=== PATIENT | male | born 1990 | race African-American/Black ===

== ENCOUNTER 2023-11-29 22:00 | Emergency (ER) | payer MEDICAID ==
[~2023-11-29] VITALS: Ht 177.8 cm; Wt 90.7 kg
[2023-11-29 22:05] VITALS: BP 125/62; PULSE 112; RESP 17; TEMP 98.1; O2SAT 98
[2023-11-29 22:46] LABS: BASOPHILS # (AUTO) 0.1 K/uL (0.00-0.22); BASOPHILS % (AUTO) 0.4 % (0.0-2.0); EOSINOPHILS # (AUTO) 0.1 K/uL (0-0.4); EOSINOPHILS % (AUTO) 0.5 % (0.0-4.0); HEMATOCRIT 37.9 % (36-52); LYMPHOCYTES # (AUTO) 2.5 K/uL (2.0-11.5); LYMPHOCYTES % (AUTO) 18.4 % (20.5-51.1); MEAN CORPUSCULAR HEMOGLOBIN 31 pg (27-31); MEAN CORPUSCULAR HGB CONC 34 g/dL (33-37); MEAN CORPUSCULAR VOLUME 90.6 fL (80-94); MONOCYTES # (AUTO) 0.9 K/uL (0.8-1.0); MONOCYTES % (AUTO) 6.9 % (1.7-9.3); NEUTROPHILS % (AUTO) 73.8 % (42.2-75.2); PLATELET COUNT (AUTO) 342 K/uL (140-450); RED BLOOD CELL COUNT(AUTO) 4.19 MIL/uL (4.20-6.10); RED CELL DISTRIBUTION WIDTH 12.4 % (11.6-13.7); WHITE BLOOD COUNT (AUTO) 13.6 K/uL (4.8-10.8)
[2023-11-29] MEDS: NACL 0.9% 1,000 ML IV ONE (22:48)
[2023-11-29] MEDS: LORazepam 2 MG/ML VIAL IVP ONE (22:48)
[2023-11-29 23:04] LABS: ALBUMIN 3.4 g/dL (3.4-5.0); BILIRUBIN,DIRECT 0.1 mg/dL (0.0-0.3); TOTAL BILIRUBIN 0.3 mg/dL (0.0-1.0); TOTAL PROTEIN, SERUM 6.7 g/dL (6.4-8.2)
[2023-11-29 23:06] LABS: ANION GAP 14.2 (8-16); CALCIUM 8.2 mg/dL (8.5-10.1); CREATININE 1.7 mg/dL (0.6-1.3); POTASSIUM 3.2 mmol/L (3.5-5.1)
[2023-11-29 23:22] LABS: APPEARANCE,URINE CLEAR (CLEAR); BILIRUBIN,URINE NEGATIVE (NEGATIVE); BLOOD, URINE TRACE-I (NEGATIVE); COLOR,URINE YELLOW (YELLOW); LEUKOCYTE ESTERASE ,URINE NEGATIVE (NEGATIVE); NITRITE, URINE NEGATIVE (NEGATIVE); PROTEIN,URINE NEGATIVE (NEGATIVE); UGLUCOSE NEGATIVE (NEGATIVE); UROBILINOGEN,URINE 0.2 EU/dL (0.2 - 1)
[2023-11-29 23:30] LABS: AMPHETAMINE, URINE NEGATIVE ng/ml (NEG <=1000); BARBITURATE, URINE NEGATIVE ng/ml (NEG <=200); BENZODIAZEPINE, URINE NEGATIVE ng/mL (NEG <=200); CANNABINOID, URINE NEGATIVE ng/mL (NEG <=50); COCAINE, URINE NEGATIVE ng/mL (NEG <=300); OPIATE, URINE NEGATIVE ng/mL (NEG <=2000); PHENCYCLIDINE SCREEN,URINE NEGATIVE ng/mL (NEG <=25)
[2023-11-29 23:43] LABS: RBC,URINE 0-5 /HPF (0-5)
[2023-11-29 23:44] LABS: BACTERIA,URINE FEW /HPF (None Seen); MUCUS,URINE None Seen /LPF (None Seen); SQUAMOUS EPITHELIAL CELL,UR 0-3 (FEW) /LPF (0-3 (FEW)); WBC,URINE 0-5 /HPF (0-5)
[2023-11-29] MEDS: POTASSIUM CHLORIDE 10 MEQ TABER PO ONE (23:59)
[2023-11-30] MEDS ORDERED: NAPR-337 PO (01:13)
[2023-11-30] MEDS ORDERED: DIAZ5TAB6 PO (01:13)
[2023-11-30] MEDS: KETOROLAC 30 MG/ML VIAL IVP ONE (01:16)
[2023-11-30] MEDS ORDERED: MORPHINE SULFATE 4 MG/ML SYR ONE (01:49)
[2023-11-30] MEDS: MORPHINE SULFATE 4 MG/ML SYR IM ONE (01:54)
[2023-11-30 02:10] VITALS: BP 123/84; PULSE 76; RESP 18; TEMP 98; O2SAT 97
[2023-12-02] MEDS ORDERED: DIAZ5TAB6 PO (12:12)
== END 2023-11-30 02:10 | disposition home or self-care (01) ==
LOC: MED 22:00
DX: R56.9 Unspecified convulsions (principal); E87.6 Hypokalemia; I10 Essential (primary) hypertension; Z79.899 Other long term (current) drug therapy
CPT/HCPCS: 36415; 70450; 72100; 80048; 80076; 80305; 81001; 85025; 93005; 96361; 96372; 96374; 96375; 99285; J1885; J2060; J2270